=== PATIENT | female | born 1965 | race Asian ===

== ENCOUNTER 2018-12-27 10:32 | Outpatient (CLI) | payer BC | END 2018-12-27 23:50 | disposition home or self-care (01) | LOC: RAD 10:32 | DX: M25.441 Effusion, right hand (principal) ==

== ENCOUNTER 2019-02-14 08:28 | Outpatient (CLI) | payer BC | END 2019-02-14 22:11 | disposition home or self-care (01) | LOC: MAMMO 08:28 | DX: Z12.31 Encounter for screening mammogram for malignant neoplasm of breast (principal); Z13.820 Encounter for screening for osteoporosis ==

== ENCOUNTER 2020-06-10 07:35 | Outpatient (CLI) | payer BC ==
[2020-06-10 07:55] LABS: PLATELET COUNT 276 K/uL (152-353)
[2020-06-10 08:50] LABS: POTASSIUM 4.3 mmol/L (3.6-5.2)
== END 2020-06-10 18:55 | disposition home or self-care (01) ==
LOC: LABW 07:35
PROVIDERS: ATTEND Internal Medicine
DX: Z00.00 Encounter for general adult medical examination without abnormal findings (principal); Z13.820 Encounter for screening for osteoporosis
CPT/HCPCS: 36415; 80053; 80061; 81000; 82306; 84439; 84443; 85027

== ENCOUNTER 2022-05-23 10:49 | Outpatient (CLI) | payer BC | END 2022-05-23 19:20 | disposition home or self-care (01) | LOC: LABW 10:49 → MAMMO 11:00 → LABW 19:20 | PROVIDERS: ATTEND Internal Medicine | DX: Z12.31 Encounter for screening mammogram for malignant neoplasm of breast (principal); N95.8 Other specified menopausal and perimenopausal disorders | CPT/HCPCS: 36415; 82672; 83001; 83002; 84144 ==